=== PATIENT | female | born 1965 | race Caucasian/White ===

== ENCOUNTER 2022-07-11 09:37 | Emergency (ER) | payer MEDICAID, SELFPAY ==
[2022-07-11 09:46] VITALS: BP 174/88; PULSE 79; RESP 18; O2SAT 99
[2022-07-11 09:50] VITALS: TEMP 36.3
--- NOTE | 2022-07-11 09:58 | DI.CT_ITS ---
Exam(s) CT NECK W EXAM: CT NECK W CLINICAL HISTORY: left facial swelling, concern for dental infection. TECHNIQUE: Imaging Protocol: Axial computed tomography images with coronal and sagittal reformatted images were created and reviewed CONTRAST MATERIAL: Intravenous: Omnipaque 350 Contrast volume:100 ml contrast COMPARISON: No exams were available for comparison FINDINGS: Parotids/submandibular/thyroid gland: Normal. Lymphadenopathy: There are scattered lymph nodes seen along the level one to level three on the left , all measuring less than 8 mm in short axis diameter which are physiologic in nature. Carotids/Jugular: No significant stenosis or dissection.. Soft tissues: Soft tissue swelling and inferior left orbit as well as anterior to the left maxilla. No drainable abscess. The epiglottis and vocal cords are within normal limits. Lungs: Images through both lung apices are unremarkable. Bones: Severe dental caries involving the left maxillary incisors and canine. Periapical lucencies s een at the left maxillary incisors. Severe dental petra with slight periapical lucency seen adjacent to the right maxillary canine. Degenerative changes of the cervical spine. Visualized portions of the brain and orbits: Unremarkable. Sinuses and mastoids: Mucous retention right maxillary sinus and right ethmoid sinuses. Mucosal thic kening right frontal sinus. IMPRESSION: Dental caries greatest the left maxillary canine. Adjacent soft tissue swelling and mildly enlarged lymph nodes. No evidence of abscess. RADIATION DOSE DELIVERED: 583.48mGy.cm Total DLP DATA REPOSITORY: All CT scans at this facility are submitted to the National Radiology Data Registry (NRDR) Dose Index Registry (DIR) with the [employer] ([employer]). RADIATION OPTIMIZATION: All CT scans at this facility use at least one of these dose optimization te chniques: automated exposure control; mA and/or kV adjustment per patient size (includes targeted exa ms where dose is matched to clinical indication); or iterative reconstruction.
--- NOTE | 2022-07-11 10:02 | ED.GENADUL_ITS ---
Discharge Plan Disposition Patient Disposition: Home Condition: Improving Discharge Details Clinical Impression: Facial cellulitis, Dental infection Primary Care Provider: Cady Taylor ED Provider: Jaime Gonzalez Home Meds and New Rx's Prescriptions: New amoxicillin-pot clavulanate 875-125 mg tablet 1 tab PO BID 7 Days Qty: 14 0RF Discharge Instructions Instructions: Dental Abscess (ED), Cellulitis (ED) Additional Instructions: Care management will be reaching out to help arrange dental follow-up. Please return to the emergency department for any worsening symptoms Medical Decision Making 56-year-old female presents with left-sided facial swelling that she awoke with this morning, has been applying clove oil to her fractured teeth of her upper left mandibular region last night, chronic poor dentition and dental caries throughout, afebrile nontoxic however does have marked induration to left maxillary region infraorbital region and subjective discomfort in the buccal and submandibular region. Tolerating secretions normal voice no stridor no appreciable submandibular or submental induration. No intraoral lesions noted. High clinical suspicion for dental infection with facial cellulitis however given rapid progression of symptoms and location will obtain CT face and neck to assess for deep space infection of the head neck. Must also consider allergic reaction to clove oil. Trial of Toradol dexamethasone, empiric Unasyn will likely transition to Augmentin as an outpatient pending CT results 13: 42 this comfortably no acute distress. Improvement after meds. No evidence of abscess on imaging. Likely facial cellulitis related to dental infection. Patient endorses that she did have spontaneous drainage of purulent bloody material on her way to her visit today she likely self decompressed a dental abscess. Given home care instructions and return precautions will be started on Augmentin HPI General Date/Time Provider Initiated Documentation: 07/11/22 09:38 . HPI Narrative: 56-year-old female presents with left sided facial swelling and discomfort that she noted upon waking up this morning. Has had chronic poor dentition and was applying clove oil to her teeth for analgesia and developed blisters of oral mucosa and discomfort last night. Related Data Home Medications Medication Instructions Recorded Confirmed amoxicillin 875 mg-potassium 1 tab PO BID 7 days #14 tabs 07/11/22 clavulanate 125 mg tablet Previous Rx's Medication Instructions Recorded amoxicillin 875 mg-potassium 1 tab PO BID 7 days #14 tabs 07/11/22 clavulanate 125 mg tablet Allergies Allergy/AdvReac Type Severity Reaction Status Date / Time aspirin Allergy Unverified 07/11/22 09:49 General Stated Complaint: DentalOral KALEY: 3 Review of Systems Narrative: Review of Systems Constitutional: negative Eyes: negative ENT: facial swelling Cardiovascular: negative Respiratory: negative Gastrointestinal: negative : negative Musculoskeletal: negative Skin: negative Neurologic: negative Psych: negative PFSH All Active Problems (Updated 07/11/22 @ 13:44 by Jaime Gonzalez MD) Facial cellulitis (Acute) Dental infection (Acute) Social History Smoking/Tobacco Use Status: Never Smoking risk assessment performed?: Yes Alcohol Intake: never Drug use: Occasionally Substance use type: marijuana Do you feel safe at home: Yes Do you feel safe in your relationship?: Yes Exam Narrative Exam Narrative: Physical Examination General: alert, awake, cooperative, resting comfortably, no acute distress HEENT: Edema and induration to left maxillary soft tissue extending into infraorbital soft tissue, subjective discomfort into buccal region and submandibular region; no appreciable oral lesions, patient has chronic appearing dental caries and multiple fractures of upper teeth; normocephalic, atraumatic; PERRL, EOM intact, conjunctiva normal; no nasal discharge; moist mucous membranes, oral and pharyngeal mucosa normal, tolerating secretions Neck: supple, trachea midline; full ROM Chest: normal to inspection Respiratory: normal respiratory effort, speaking in full sentences, clear to auscultation, no wheezing, rales or rhonchi Cardiac: regular rate, regular rhythm, S1S2 intact, no murmurs rubs or gallops GI: abdomen soft, non-tender, non-distended; no palpable mass or hepatosplenomegaly Skin: no lesions, rashes or trauma appreciated Neuro: AAOx3, normal speech, moving all extremities Psych: Appropriate mood and affect Course Vital Signs Vital signs: Vital Signs Pulse 79 07/11/22 09:46 Respiratory Rate 18 07/11/22 09:46 Blood Pressure 174/88 H 07/11/22 09:46 Pulse Oximetry 99 07/11/22 09:46 Temperature 36.3 C L 07/11/22 09:50 Temperature Source Tympanic 07/11/22 09:50 Pulse 79 07/11/22 09:46 Respiratory Rate 18 07/11/22 09:46 Respiratory Effort Normal, Non-Labored 07/11/22 09:48 Blood Pressure 174/88 H 07/11/22 09:46 Pulse Oximetry 99 07/11/22 09:46 Oxygen Delivery Method Room Air 07/11/22 09:46 Oxygen Flow Rate 0 07/11/22 09:46
[2022-07-11] MEDS: AMPICILLIN/SULBACTAM 3 GM in Normal Saline 100 ML IVPB (10:24)
[2022-07-11] MEDS: Dexamethasone 10 MG/ML VIAL IVP (10:27)
[2022-07-11 10:28] LABS: Abs Immature Grans 0.16 10^3/uL (0.0-0.06); Absolute Basophil Count 0.05 10^3/uL (0.0-0.2); Absolute Lymphocyte Count 2.59 10^3/uL (1.2-3.4); Absolute Monocyte Count 0.77 10^3/uL (0.1-0.8); Basophils % 0.4; Eosinophils % 1.4; HCT 45.3 % (36.0-46.0); HGB 14.8 g/dL (11.2-15.7); Immature Grans % 1.4; MCH 28.9 pg (27.0-33.0); MCHC 32.7 % (32.0-36.0); MCV 89 fL (80-95); MPV 9.9 fL (8.0-11.0); Monocytes % 6.5; Neutrophils % 68.3; Platelet Count 233 10^3/uL (130-400); RBC 5.12 10^6/uL (3.93-5.22); RDW 13.3 % (11.7-14.6); RDW-SD 43.6 fL; WBC 11.79 10^3/uL (4.4-10.8)
[2022-07-11] MEDS: Ketorolac 15 MG/ML VIAL IVP (10:28)
[2022-07-11] MEDS: Normal Saline 500 ML 1000 ML IV (10:28)
[2022-07-11 10:29] LABS: Absolute Eosinophil Count 0.17 10^3/uL (0.0-0.7); Absolute Neutrophil Count 8.05 10^3/uL (1.2-6.7)
[2022-07-11 10:41] LABS: ALT 20 U/L (14-59); AST 12 U/L (15-37); Albumin 3.9 g/dL (3.4-5.0); Alkaline Phosphatase 121 U/L (46-116); Anion Gap 7.8 mmol/L (3-11); BUN 8 mg/dL (7-18); Bilirubin, Total 0.6 mg/dL (0.2-1.0); CO2 27.2 mmol/L (21.0-32.0); CREATININE 0.8 mg/dL (0.55-1.02); Calcium 9.3 mg/dL (8.5-10.1); Chloride 104 mmol/L (98-107); Estimated GFR 86.96 (mL/min/1.73m2); Glucose 116 mg/dL (74-106); Sodium 139 mmol/L (136-145); Total Protein 8.4 g/dL (6.4-8.2)
[2022-07-11] MEDS: Omnipaque 350 MG/ML 100 ML BTL IJ (11:02)
[2022-07-11] MEDS: Normal Saline - Diluent 50 ML VIAL IJ (11:03)
[2022-07-11 14:14] VITALS: BP 142/78; PULSE 70; RESP 16; O2SAT 97
== END 2022-07-11 14:15 | disposition home or self-care (01) ==
PROVIDERS: Emergency Provider Emergency Medicine; PCP Internal Medicine
DX: L03.211 Cellulitis of face (principal); K04.7 Periapical abscess without sinus; K03.81 Cracked tooth
CPT/HCPCS: 70491; 80053; 96365; 96375; 99284; 85025; J0295; J1100; J1885; J3490